=== PATIENT | male | born 1990 | race Asian ===

== ENCOUNTER 2018-12-20 15:56 | Emergency (ER) | payer MEDICAID ==
[~2018-12-20] VITALS: Ht 167.6 cm; Wt 78.0 kg
[2018-12-20 17:31] LABS: HEMATOCRIT. 33.5 % (42.0-52.0); HEMOGLOBIN. 11.6 g/dL (14.0-18.0); MEAN CORPUSCULAR HEMOGLOBIN 31.2 pg (28.0-32.0); MEAN CORPUSCULAR VOLUME 89.7 fL (80.0-94.0); MEAN PLATELET VOLUME 7.4 fl (7.4-10.4); PLATELET 152 x1000/uL (130-400); RED BLOOD CELL COUNT 3.74 mill/uL (4.7-6.1); RED CELL DISTRIBUTION WIDTH 14.5 % (11.6-14.6)
[2018-12-20 17:35] LABS: CHLORIDE 103 mEq/L (98-107)
[2018-12-20 17:56] LABS: PLATELET ESTIMATE NORMAL
[2018-12-21] MEDS ORDERED: OLANZAPINE 10 MG/VIAL IM ONE (00:45)
[2018-12-21] MEDS ORDERED: ZIPRASIDONE MESYLATE 20MG/VIAL IM ONE (02:00)
[2018-12-21] MEDS ORDERED: RISPERIDONE 1MG TABLET ONE (04:09)
[2018-12-21] MEDS ORDERED: RISPERIDONE 1MG TABLET PO NR (04:15)
[2018-12-21] MEDS ORDERED: GABAPENTIN 400MG CAPSULE PO ONE (06:45)
[2018-12-21 09:46] VITALS: BP 127/75
== END 2018-12-21 10:36 | disposition home or self-care (01) ==
LOC: ER 15:56
DX: N18.6 End stage renal disease (principal); R41.0 Disorientation, unspecified; R62.50 Unspecified lack of expected normal physiological development in childhood; Z99.2 Dependence on renal dialysis
CPT/HCPCS: 36415; 71045; 80048; 80053; 83880; 84484; 85025; 93005; 96372; 99284; J3486; J3490

== ENCOUNTER 2019-01-31 23:18 | Emergency (ER) | payer MEDICAID ==
[~2019-01-31] VITALS: Ht 162.6 cm; Wt 78.0 kg
[2019-02-01 03:19] LABS: BASOPHILS % 1.1 % (0.0-2.0); HEMATOCRIT. 30.2 % (42.0-52.0); HEMOGLOBIN. 10.3 g/dL (14.0-18.0); LYMPHOCYTES % 29.1 % (20.0-50.0); MEAN CORPUSCULAR VOLUME 90.9 fL (80.0-94.0); MEAN PLATELET VOLUME 7.7 fl (7.4-10.4); MONOCYTES % 10.4 % (2.0-8.0); NEUTROPHILS % 52.4 % (40.0-76.0); PLATELET 178 x1000/uL (130-400); RED BLOOD CELL COUNT 3.32 mill/uL (4.7-6.1); RED CELL DISTRIBUTION WIDTH 14.1 % (11.6-14.6)
[2019-02-01 03:26] LABS: CHLORIDE 109 mEq/L (98-107)
[2019-02-01 04:13] LABS: CLARITY URINE CLEAR (CLEAR); COLOR URINE YELLOW (YELLOW); KETONES URINE NEGATIVE (NEGATIVE); LEUKOCYTE ESTERASE URINE NEGATIVE (NEGATIVE); NITRITE URINE NEGATIVE (NEGATIVE); OCCULT BLOOD URINE TRACE (NEGATIVE); PROTEIN URINE 1+ (NEGATIVE); SPECIFIC GRAVITY URINE 1.009 (1.005-1.030); UROBILINOGEN URINE 0.2 E.U./dL (0.2-1.0)
[2019-02-01 07:27] VITALS: BP 130/80
[2019-02-01] MEDS ORDERED: LORAZEPAM 2MG/ML CPJ IM ONE (10:15)
[2019-02-01] MEDS ORDERED: HALOPERIDOL LACTATE 5MG/ML VIAL IM ONE (10:15)
== END 2019-02-01 15:06 | disposition home or self-care (01) ==
LOC: ER 23:18
DX: N18.6 End stage renal disease (principal); Z99.2 Dependence on renal dialysis; Z91.15 Patient's noncompliance with renal dialysis; F79 Unspecified intellectual disabilities; Z91.040 Latex allergy status; Z88.8 Allergy status to other drugs, medicaments and biological substances
CPT/HCPCS: 36415; 81003; 93005; 99284